=== PATIENT | female | born 1995 | race Two or more races ===

== ENCOUNTER 2020-06-01 18:00 | Observation (INO) | payer MEDICAID, OTHER ==
[~2020-06-01] VITALS: Ht 177.8 cm; Wt 95.3 kg
== END 2020-06-01 19:35 | disposition home or self-care (01) ==
LOC: LDRP 18:00
PROVIDERS: ADMIT Obstetrics & Gynecology; ATTEND Obstetrics & Gynecology
DX: O62.9 Abnormality of forces of labor, unspecified (principal); Z3A.33 33 weeks gestation of pregnancy
CPT/HCPCS: 59025; 81002; G0378

== ENCOUNTER 2020-06-11 19:03 | Observation (INO) | payer MEDICAID ==
[2020-06-11] MEDS ORDERED: PREN-96 PO (21:05)
== END 2020-06-11 21:18 | disposition home or self-care (01) ==
LOC: LDRP 19:03
PROVIDERS: ADMIT Obstetrics & Gynecology; ATTEND Obstetrics & Gynecology
DX: O24.419 Gestational diabetes mellitus in pregnancy, unspecified control (principal); Z3A.34 34 weeks gestation of pregnancy
CPT/HCPCS: 59025; 76818; 81002; 82948; 82962; G0378

== ENCOUNTER 2020-06-18 15:11 | Observation (INO) | payer MEDICAID ==
[~2020-06-18] VITALS: Ht 167.6 cm; Wt 99.3 kg
[~2020-06-18 15:11] MED LIST: PREN-96 PO
== END 2020-06-25 13:53 | disposition home or self-care (01) ==
LOC: LDRP 06-25 12:00
PROVIDERS: ADMIT Obstetrics & Gynecology; ATTEND Obstetrics & Gynecology
DX: O26.893 Other specified pregnancy related conditions, third trimester (principal); R10.9 Unspecified abdominal pain; O24.419 Gestational diabetes mellitus in pregnancy, unspecified control; Z3A.36 36 weeks gestation of pregnancy
CPT/HCPCS: 59025; 76818; 81002; 82948; 82962; G0378

== ENCOUNTER 2020-06-18 18:43 | Observation (INO) | payer MEDICAID ==
[~2020-06-18] VITALS: Ht 167.6 cm; Wt 97.5 kg
== END 2020-06-18 20:40 | disposition home or self-care (01) ==
LOC: LDRP 18:43
PROVIDERS: ADMIT Specialist; ATTEND Specialist
DX: O24.419 Gestational diabetes mellitus in pregnancy, unspecified control (principal); Z3A.35 35 weeks gestation of pregnancy
CPT/HCPCS: 59025; 76818; 81002; 82948; 82962; G0378

== ENCOUNTER 2020-07-01 18:56 | Observation (INO) | payer MEDICAID ==
[~2020-07-01] VITALS: Ht 167.6 cm; Wt 98.4 kg
== END 2020-07-01 22:05 | disposition home or self-care (01) ==
LOC: LDRP 18:56
PROVIDERS: ADMIT Specialist; ATTEND Specialist
DX: O42.92 Full-term premature rupture of membranes, unspecified as to length of time between rupture and onset of labor (principal); O62.9 Abnormality of forces of labor, unspecified; Z3A.37 37 weeks gestation of pregnancy
CPT/HCPCS: 59025; 81002; 82948; 82962; 84112; G0378; Q0114

== ENCOUNTER 2020-07-05 07:37 | Observation (INO) | payer MEDICAID ==
[~2020-07-05] VITALS: Ht 167.6 cm; Wt 98.4 kg
== END 2020-07-05 11:24 | disposition home or self-care (01) ==
LOC: LDRP 07:37
PROVIDERS: ADMIT Specialist; ATTEND Specialist
DX: O60.03 Preterm labor without delivery, third trimester (principal); O24.419 Gestational diabetes mellitus in pregnancy, unspecified control; Z87.891 Personal history of nicotine dependence; Z3A.38 38 weeks gestation of pregnancy
CPT/HCPCS: 59025; 81002; G0378

== ENCOUNTER 2020-07-05 23:15 | Inpatient (IN) | payer MEDICAID ==
[~2020-07-05] VITALS: Ht 167.6 cm; Wt 98.4 kg
[2020-07-06] MEDS ORDERED: LIDOCAINE 2%HCL (LOCAL ANESTH.) INJ 20ML MDV IJ PRN (00:15)
[2020-07-06] MEDS ORDERED: PHISODERM TOP SOLN 240ML BTL TOP PRN (00:15)
[2020-07-06] MEDS ORDERED: DERMOPLAST 60ML BOTTLE TOP PRN (00:15)
[2020-07-06] MEDS ORDERED: WITCH HAZEL-GLYCERIN PAD TOP PRN (00:15)
[2020-07-06 00:56] LABS: Basophils # (auto) 0 10 ^3/uL (0-0.2); Basophils % (auto) 0.6 % (0.0-2.0); Eosinophils # (auto) 0.1 10 ^3/uL (0-0.8); Hematocrit 32.9 % (36.0-46.0); Lymphocytes # (auto) 1.9 10 ^3/uL (0.4-5.4); Lymphocytes % (auto) 27.6 % (10.0-50.0); Mean Corpuscular Hemoglobin 27.2 pg (28.0-32.0); Mean Corpuscular Hgb Conc. 33.5 g/dL (32.0-36.0); Mean Corpuscular Volume 81.3 fL (80.0-100.0); Monocytes # (auto) 0.6 10 ^3/uL (0-1.3); Monocytes % (auto) 8.6 % (0.0-12.0); Neutrophils # (auto) 4.2 10 ^3/uL (1.6-8.6); Neutrophils % (auto) 62.2 % (37.0-80.0); Nucleated Red Blood Cells % 0.1 %; Platelet Count (auto) 276 10^3/uL (140-450); Red Blood Cells 4.05 10^6/uL (4.0-5.20); White Blood Cell 6.7 10^3/uL (4.4-10.8)
[2020-07-06 00:57] LABS: Urine Amorphous Crystal FEW /hpf (None Seen); Urine Bacteria FEW /hpf (None Seen); Urine Blood Negative /uL (Negative); Urine Mucus FEW (None Seen); Urine Specific Gravity 1.028 (1.001-1.035); Urine WBC 25 /hpf (0 - 5)
[2020-07-06 01:03] LABS: INR 0.98 (0.9-1.15); Partial Thromboplastin Time 29.3 sec (23.0-31.2)
[2020-07-06 01:04] LABS: Albumin 2.5 g/dL (3.4-5.0); Calcium 8.6 mg/dL (8.5-10.1); Potassium 3.7 mmol/L (3.5-5.1)
[2020-07-06 01:07] LABS: Bilirubin, Total 0.3 mg/dL (0.2-1.0)
[2020-07-06 01:07] LABS: Alcohol, Urine < 3.0 mg/dL (0-10); Amphetamine Screen, Urine NEGATIVE (NEGATIVE); Barbiturate Scree,Urine NEGATIVE (NEGATIVE); Benzodiazephine Screen, Urine NEGATIVE (NEGATIVE); Cannabinoid Screen, Urine NEGATIVE (NEGATIVE); Cocaine Screen, Urine NEGATIVE (NEGATIVE); Opiate Scree,Urine NEGATIVE (NEGATIVE); Phencyclidine Screen, Urine NEGATIVE (NEGATIVE)
[2020-07-06] MEDS ORDERED: ROPIVACAINE HCL 200 ML EPI SCH (06:30)
[2020-07-06] MEDS ORDERED: fentaNYL CITRATE 100 MCG/2 ML VL IV ONE (06:30)
[2020-07-06] MEDS ORDERED: ePHEDrine SULFATE 50 MG/ML AMP IV ONE (06:30)
[2020-07-06] MEDS ORDERED: LIDOCAINE HCL 2 %PF INJ 10ML AMP IJ ONE (06:30)
[2020-07-06] MEDS: LACTATED RINGER'S 1,000 ML IV SCH ×2 (07:09→09:31)
[2020-07-06] MEDS ORDERED: LACT. RINGERS/OXYTOCIN 20UNITS 500 ML IV ONE ×2 (07:45→08:15)
[2020-07-06] MEDS ORDERED: METHYLERGONOVINE MALEATE 0.2 MG/ML AMP IM ONE ×2 (11:12→11:30)
[2020-07-06] MEDS ORDERED: ACETAMINOPHEN 325 MG TAB PO PRN (11:45)
[2020-07-06 14:38] VITALS: BP 109/64
[2020-07-06] MEDS: IBUPROFEN 600 MG TAB PO PRN (14:40)
[2020-07-06 19:30] VITALS: BP 106/66
[2020-07-06 23:00] VITALS: BP 99/52
[2020-07-07 03:00] VITALS: BP 86/54
[2020-07-07] MEDS: IBUPROFEN 600 MG TAB PO PRN (04:26)
[2020-07-07 06:06] LABS: Rubella Antibodies, IgG 4.07 index (Immune >0.99)
[2020-07-07 07:06] LABS: RPR Non Reactive (Non Reactive)
[2020-07-07 07:15] VITALS: BP 107/69
[2020-07-07 11:15] VITALS: BP 105/69
[2020-07-07 15:00] VITALS: BP 95/57
== END 2020-07-07 15:45 | disposition home or self-care (01) | DRG 560 ==
LOC: LDRP 23:15 → OBSVTOIN 07-06 00:11
PROVIDERS: ADMIT Specialist; ATTEND Specialist
PROC: 10E0XZZ Delivery of Products of Conception, External Approach (ICD-10-PCS; principal; 2020-07-06)
PROC: 10907ZC Drainage of Amniotic Fluid, Therapeutic from Products of Conception, Via Natural or Artificial Opening (ICD-10-PCS; 2020-07-06)
PROC: 3E0R3BZ Introduction of Anesthetic Agent into Spinal Canal, Percutaneous Approach (ICD-10-PCS; 2020-07-06)
PROC: 00HU33Z Insertion of Infusion Device into Spinal Canal, Percutaneous Approach (ICD-10-PCS; 2020-07-06)
DX: O69.81X0 Labor and delivery complicated by cord around neck, without compression, not applicable or unspecified (principal); Z20.822 Contact with and (suspected) exposure to COVID-19; Z37.0 Single live birth; Z3A.37 37 weeks gestation of pregnancy
CPT/HCPCS: 36415; 59025; 59409; 62282; 80053; 80307; 81001; 81002; 82962; 85025; 85610; 85730; 86592; 86762; 86850; 86900; 86901; 87426; 96360; 96361; 96374; G0378; J2590

== ENCOUNTER 2020-09-03 07:09 | Day surgery (SDC) | payer MEDICAID ==
[2020-08-31 13:26] LABS: Lymphocytes # (auto) 2.1 10 ^3/uL (0.4-5.4); White Blood Cell 6.1 10^3/uL (4.4-10.8)
[2020-08-31 13:28] LABS: Basophils # (auto) 0.1 10 ^3/uL (0-0.2); Eosinophils # (auto) 0.1 10 ^3/uL (0-0.8); Eosinophils % (auto) 1.8 % (0.0-7.0); Hematocrit 38.4 % (36.0-46.0); Hemoglobin 13.1 g/dL (12.2-16.2); Lymphocytes % (auto) 34.3 % (10.0-50.0); Mean Corpuscular Hemoglobin 27.4 pg (28.0-32.0); Mean Corpuscular Hgb Conc. 34.2 g/dL (32.0-36.0); Mean Corpuscular Volume 80.2 fL (80.0-100.0); Monocytes # (auto) 0.4 10 ^3/uL (0-1.3); Monocytes % (auto) 7.1 % (0.0-12.0); Neutrophils # (auto) 3.4 10 ^3/uL (1.6-8.6); Neutrophils % (auto) 55.8 % (37.0-80.0); Nucleated Red Blood Cells % 0.1 %; Red Blood Cells 4.79 10^6/uL (4.0-5.20); Red Cell Distribution Width 15.7 % (11.8-14.3)
[2020-08-31 13:33] LABS: Urine Bacteria MOD /hpf (None Seen); Urine Blood Negative /uL (Negative); Urine Mucus FEW (None Seen); Urine Specific Gravity 1.023 (1.001-1.035); Urine WBC 51 /hpf (0 - 5)
[2020-08-31 13:49] LABS: Albumin 3.8 g/dL (3.4-5.0); Potassium 4.4 mmol/L (3.5-5.1)
[2020-08-31 13:56] LABS: Bilirubin, Total 0.5 mg/dL (0.2-1.0); Calcium 9.1 mg/dL (8.5-10.1); Total Protein 8.5 g/dL (6.4-8.2)
[~2020-09-03] VITALS: Ht 167.6 cm; Wt 88.9 kg
[2020-09-03] MEDS ORDERED: ceFAZolin 1GM/50ML 50 ML IV ONE (07:16)
[2020-09-03] MEDS ORDERED: fentaNYL CITRATE 100 MCG/2 ML VL ONE (09:05)
[2020-09-03] MEDS ORDERED: MEPERIDINE HCL (50 MG/ML) 1 ML VIAL ONE (09:05)
[2020-09-03] MEDS ORDERED: MIDAZOLAM HCL 1MG/1ML-2 ML VIAL ONE (09:05)
[2020-09-03] MEDS ORDERED: PROPOFOL 10 MG/ML 20 ML IV ONE (09:08)
[2020-09-03] MEDS ORDERED: DexAMETHasone SOD PHOS 10MG/1ML VIAL INJ ONE (09:08)
[2020-09-03] MEDS ORDERED: MIDAZOLAM HCL 1MG/1ML-2 ML VIAL IV PRN (09:15)
[2020-09-03] MEDS ORDERED: fentaNYL CITRATE 100 MCG/2 ML VL IV PRN (09:15)
[2020-09-03] MEDS ORDERED: ePHEDrine SULFATE 50 MG/ML AMP IV PRN (09:15)
[2020-09-03] MEDS ORDERED: ONDANSETRON HCL 4 MG/2 ML VIAL IV PRN ×3 (09:15→10:15)
[2020-09-03] MEDS ORDERED: MORPHINE SULF INJ 2 MG/ML SYRINGE 1ML IV PRN (09:15)
[2020-09-03] MEDS ORDERED: hydrALAZINE HCL 20 MG/ML VL IV PRN (09:15)
[2020-09-03] MEDS ORDERED: LABETALOL HCL 5 MG/ML 4ML SYRINGE IV PRN (09:15)
[2020-09-03] MEDS ORDERED: LACTATED RINGER'S 1,000 ML IV SCH ×2 (10:15)
[2020-09-03] MEDS: HYDROmorphone HCL 2 MG/ML VL IV PRN ×3 (10:28→11:20)
[2020-09-03 11:35] VITALS: BP 138/88
== END 2020-09-03 12:00 | disposition home or self-care (01) ==
LOC: SUR 07:09
PROVIDERS: ATTEND Obstetrics & Gynecology
DX: Z30.2 Encounter for sterilization (principal); E66.01 Morbid (severe) obesity due to excess calories; F32.9 Major depressive disorder, single episode, unspecified; F99 Mental disorder, not otherwise specified; Z68.35 Body mass index [BMI] 35.0-35.9, adult; Z20.822 Contact with and (suspected) exposure to COVID-19; Z98.890 Other specified postprocedural states; Z79.899 Other long term (current) drug therapy
CPT/HCPCS: 36415; 58671; 80053; 81001; 81025; 84702; 85025; 86850; 86900; 86901; J0690; J1100; J1170; J2175; J2250; J2704; J3010; U0003